=== PATIENT | female | born 1995 | race Two or more races ===

== ENCOUNTER 2016-10-02 00:47 | Emergency (ER) | payer BC, OTHER ==
[~2016-10-02] VITALS: Ht 165.1 cm; Wt 65.8 kg
[2016-10-02 02:18] VITALS: BP 119/89
[2016-10-02] MEDS ORDERED: IBUPROFEN 600 MG TAB PO ONE ×2 (02:22→02:30)
== END 2016-10-02 03:02 | disposition home or self-care (01) ==
LOC: ER 00:47
DX: S60.211A Contusion of right wrist, initial encounter (principal); V49.9XXA Car occupant (driver) (passenger) injured in unspecified traffic accident, initial encounter; W22.10XA Striking against or struck by unspecified automobile airbag, initial encounter; Y93.89 Activity, other specified; Y99.8 Other external cause status; Y92.89 Other specified places as the place of occurrence of the external cause
CPT/HCPCS: 73100; 73120

== ENCOUNTER 2018-08-12 14:00 | Emergency (ER) | payer MEDICAID, OTHER ==
[~2018-08-12] VITALS: Ht 165.1 cm; Wt 72.6 kg
[2018-08-12 14:50] LABS: Basophils # (auto) 0 uL; Basophils % (auto) 0.3 % (0.0-2.0); Eosinophils # (auto) 0 uL; Eosinophils % (auto) 0.5 % (0.0-7.0); Hematocrit 43.9 % (36.0-46.0); Hemoglobin 14.7 g/dL (12.2-16.2); Lymphocytes # (auto) 2.2 uL; Lymphocytes % (auto) 24.2 % (10.0-50.0); Mean Corpuscular Hemoglobin 30.5 pg (28.0-32.0); Mean Corpuscular Hgb Conc. 33.5 g/dL (32.0-36.0); Mean Corpuscular Volume 90.9 fL (80.0-100.0); Monocytes # (auto) 0.4 uL; Monocytes % (auto) 4.8 % (0.0-12.0); Neutrophils # (auto) 6.5 uL; Neutrophils % (auto) 70.2 % (37.0-80.0); Platelet Count (auto) 240 10^3/uL (140-450); Red Blood Cells 4.83 10^6/uL (4.0-5.20); Red Cell Distribution Width 12.8 % (11.8-14.3); White Blood Cell 9.3 10^3/uL (4.4-10.8)
[2018-08-12 15:11] LABS: Urine Bacteria NONE SEEN /hpf (None Seen); Urine Blood 3+ /uL (Negative); Urine Specific Gravity 1.018 (1.001-1.035); Urine WBC 3 /hpf (0 - 5)
[2018-08-12 18:41] VITALS: BP 117/68
== END 2018-08-12 19:18 | disposition home or self-care (01) ==
LOC: ER 14:00
DX: O03.4 Incomplete spontaneous abortion without complication (principal); O23.41 Unspecified infection of urinary tract in pregnancy, first trimester; Z3A.01 Less than 8 weeks gestation of pregnancy
CPT/HCPCS: 36415; 76801; 81001; 84702; 85025